=== PATIENT | female | born 1975 | race Caucasian/White ===

== ENCOUNTER → 2016-12-31 | Outpatient (CLI) | payer OTHER | LOC: FIMAGING 10:18 | PROVIDERS: ATTEND Obstetrics & Gynecology Gynecology | DX: Z12.31 Encounter for screening mammogram for malignant neoplasm of breast (principal) | CPT/HCPCS: G0202 ==

== ENCOUNTER → 2018-05-24 | Outpatient (CLI) | payer OTHER | LOC: FIMAGING 12:59 | PROVIDERS: ATTEND Family Medicine | DX: R92.8 Other abnormal and inconclusive findings on diagnostic imaging of breast (principal) ==

== ENCOUNTER → 2018-05-25 | Outpatient (CLI) | payer OTHER | LOC: FIMAGING 09:15 | PROVIDERS: ATTEND Family Medicine | DX: N63.31 Unspecified lump in axillary tail of the right breast (principal) ==

== ENCOUNTER 2018-10-15 09:03 | Day surgery (SDC) | payer OTHER ==
--- NOTE | 2018-10-13 11:37 | GHP ---
[f rep st] PREOP HISTORY AND PHYSICAL DATE OF ADMISSION: 10/15/2018 CHIEF COMPLAINT: Right axillary mass. HISTORY OF PRESENT ILLNESS: The patient is a 43-year-old female who presents for surgical evaluation of a right axillary mass. She first noticed the mass approximately 6 months ago. Since then, she has undergone an ultrasound and mammogram, both of which were negative. She denies a personal history of breast cancer, but does have a family history of breast cancer. Her maternal grandmother of the disease, and her paternal grandmother had the disease but did not of it. 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 She denies any breast/skin changes, lumps, or nipple discharge. PAST MEDICAL HISTORY: Please see HPI. PAST SURGICAL HISTORY: None. SOCIAL HISTORY: The patient is a nonsmoker. She occasionally drinks alcohol. MEDICATIONS: None. REVIEW OF SYSTEMS: Ten-point review of systems was performed, is negative except for what is in the HPI. PHYSICAL EXAM: GENERAL: Well-appearing, well-dressed female in no acute distress. HEENT: Normocephalic, atraumatic. No gross hearing deficit. Mucous membranes moist. PERRLA. CARDIAC: Regular rate and rhythm. No clicks, murmurs, or rubs. CHEST: Clear to auscultation bilaterally. No crackles, rales, or rhonchi. ABDOMEN: Soft, nontender, nondistended. SKIN: Warm and dry. No rashes or jaundice MUSCULOSKELETAL: Moves all extremities equally. PSYCHIATRIC: Appropriate mood and affect. NEUROLOGIC: Alert and oriented x3. BREASTS: There is a multilobular, mobile, soft mass in the right axilla. The breasts are otherwise normal. No skin changes, nipple discharge, or masses. IMPRESSION AND PLAN: This is a healthy 43-year-old female who has what appears to be an enlarged lymph node in her right axilla. We have recommended surgical excisional biopsy for definitive diagnosis. We have discussed all risks and options. Risks of surgery include (but are not limited to) infection, bleeding , need for further surgery, damage to surrounding structures including nerves, heart attack, and . Patient understands and wishes to proceed. We will proceed with right axillary lymph node excisional biopsy. /[id number]/MODL MTDD
--- NOTE | 2018-10-15 07:58 | PDHPUP ---
History & Physical Update H&P update statement: This history and physical update is based on an assessment of the patient which was completed after admission or registration (within 24 hours), but prior to the surgery/procedure. H&P update: H&P reviewed & patient examined, no change in patient's condition since H&P completed
[2018-10-15] MEDS ORDERED: THROMBIN (BOVINE) 20,000 UNIT SPRAY TP ONE (09:07)
[2018-10-15] MEDS ORDERED: BUPIVACAINE 0.5% 30 ML SDV ONE (09:07)
[2018-10-15] MEDS ORDERED: BACITRACIN ZINC 0.5 OZ OINTTUBE TP ONE (09:07)
[2018-10-15] MEDS ORDERED: ceFAZolin 2 GM/DEXTROSE 100 ML IV ONE (09:19)
[2018-10-15] MEDS ORDERED: LR 1,000 ML IV ONE (09:20)
[2018-10-15] MEDS ORDERED: NA BICARBONATE 50 MEQ/50 ML VIAL ONE (10:18)
[2018-10-15] MEDS ORDERED: LIDOCAINE 1% 300 MG/30 ML SDV ONE (10:18)
--- NOTE | 2018-10-15 10:23 | PDANEPAE ---
ANE Past Medical History - Cardiovascular History Hx Hypertension: No Hx Arrhythmias: No Hx Chest Pain: No Hx Coronary Artery / Peripheral Vascular Disease: No Hx CHF / Valvular Disease: No Hx Palpitations: No - Pulmonary History Hx COPD: No Hx Asthma/Reactive Airway Disease: No Hx Recent Upper Respiratory Infection: No Hx Oxygen in Use at Home: No Hx Sleep Apnea: No Sleep Apnea Screening Result - Last Documented: Negative - Neurologic History Hx Cerebrovascular Accident: No Hx Seizures: No Hx Dementia: No - Endocrine History Hx Diabetes: No - Renal History Hx Renal Disorders: Yes Renal History Comment: surgeries as child to repair ureter. chronic UTI's, no symptoms - Liver History Hx Hepatic Disorders: No - Neurological & Psychiatric Hx Hx Neurological and Psychiatric Disorders: No - Cancer History Hx Cancer: Yes Cancer History Comment: melanoma removed from back - Congenital Disorder History Hx Congenital Disorders: No - GI History Hx Gastrointestinal Disorders: No - Other Health History Other Health History: none - Chronic Pain History Chronic Pain: No - Surgical History Prior Surgeries: 3-4 kidney/ ureter surgeries as small child. hernia repair as child. melanoma removed from back several years ago. elbow surgery 3-4 years ago ANE Review of Systems Review of Systems: - Exercise capacity METS (RN): 6 METS ANE Patient History - Allergies Allergies/Adverse Reactions: amoxicillin Allergy (Verified 10/07/18 16:09) Itching Penicillins Allergy (Verified 10/07/18 16:09) Itching - Home Medications Home Medications: NK [No Known Home Meds] 10/07/18 [Last Taken Unknown] - NPO status NPO Since - Liquids (Date): 10/15/18 NPO Since - Liquids (Time): 07:00 NPO Since - Solids (Date): 10/14/18 NPO Since - Solids (Time): 19:30 - Smoking Hx Smoking Status: Never smoked - Family Anes Hx Family Hx Anesthesia Complications: none ANE Labs/Vital Signs - Vital Signs Blood Pressure: 105/77 Heart Rate: 68 Respiratory Rate: 16 O2 Sat (%): 98 Height: 162.56 cm Weight: 53.07 kg ANE Physical Exam - Airway Mallampati Score: Class 1 - ASA Status ASA Status: II ANE Anesthesia Plan Anesthesia Plan: MAC
[2018-10-15] MEDS ORDERED: LR 500 ML IV PRN (11:25)
[2018-10-15] MEDS ORDERED: ONDANSETRON 4 MG/2 ML VIAL IVP PRN (11:25)
[2018-10-15] MEDS ORDERED: NALOXONE HCL 0.4 MG/ML INJ IVP PRN (11:25)
[2018-10-15] MEDS ORDERED: ACETAMINOPHEN 500 MG TAB PO PRN (11:25)
--- NOTE | 2018-10-15 11:26 | POSTANESTH ---
Post Anesthetic Evaluation Cardiovascular Status: Normal, Stable Respiratory Status: Normal, Stable Level of Consciousness/Mental Status: Can Participate in Eval Pain Control: Adequate, Prn Tx Ordered Nausea/Vomiting Control: Adequate, Prn Tx Ordered Complications Possibly Related to Anesthesia: None Noted
[2018-10-15 11:30] VITALS: BP 122/84
--- NOTE | 2018-10-18 03:59 | GOP ---
[f rep st] OPERATIVE REPORT DATE OF OPERATION: 10/15/2018 SURGEON: Perry Juarez MD INSPECTOR AND HAND PACKAGER: There was no facility assistant. ANESTHESIOLOGIST: Sher Gay MD. PREOPERATIVE DIAGNOSIS: Right axillary adenopathy. POSTOPERATIVE DIAGNOSIS: Right axillary adenopathy, pathology pending. PROCEDURE PERFORMED: Right axillary superficial node dissection. FINDINGS: The patient was found to have a clump of small nodes that were matted together in the righ t axilla which appeared to be relatively benign. Final pathology is pending. DESCRIPTION OF PROCEDURE: Patient was taken to the operating room where she was placed in the supine position with her right arm out extended. She had monitored anesthesia care, but no real sedation. She was prepped and draped in usual sterile fashion. Incision was made at the base of the axilla ov er the palpable abnormality and dissection extended down through the subcutaneous tissue. This was a ll done with 1% Xylocaine local infiltration and 0.5% Marcaine local infiltration. Dissection extend ed through the axillary fascia, and the palpable mass was grasped with an Allis clamp and appeared to be a group of matted lymph nodes. These were carefully dissected free from the remainder of the axi lla with care to avoid injury to any of the local nerves. Hemostasis was obtained with electrocauter y and/or hemoclips, and the specimen was removed and sent to Pathology. Hemostasis was obtained. Th e wound was infiltrated with 0.5% Marcaine. The axillary fascia was closed with 3-0 Vicryl and the s kin with a 4-0 Monocryl subcuticular stitch. She tolerated the procedure well. There were no compli cations. /[id number]/MODL
== END 2018-10-15 12:00 | disposition home or self-care (01) ==
LOC: FSGY 09:03
PROVIDERS: ATTEND Surgery
PROC: 07B50ZX Excision of Right Axillary Lymphatic, Open Approach, Diagnostic (ICD-10-PCS; principal; 2018-10-15 10:30)
DX: R22.9 Localized swelling, mass and lump, unspecified (principal); Z85.820 Personal history of malignant melanoma of skin; Z80.3 Family history of malignant neoplasm of breast
CPT/HCPCS: J0690